=== PATIENT | female | born 1970 | race Two or more races ===

== ENCOUNTER 2023-09-17 16:01 | Emergency (ER) | payer OTHER ==
[~2023-09-17] VITALS: Ht 157.5 cm; Wt 62.1 kg
[2023-09-17] MEDS ORDERED: ACETAMINOPHEN 500 MG GEL..CAP PO ONE (18:45)
[2023-09-17] MEDS ORDERED: CEFTRIAXONE SODIUM 2,000 MG VIAL IV ONE (18:45)
[2023-09-17] MEDS ORDERED: LIDOCAINE HCL 500 MG/50 ML 1% IJ ONE (18:45)
[2023-09-17] MEDS ORDERED: TETANUS & DIPHTHERIA TOX,ADULT 0.5 ML VIAL IM ONE (18:45)
[2023-09-18] MEDS ORDERED: TRAMADOL HCL 50 MG TABLET PO ONE (00:45)
== END 2023-09-18 01:29 | disposition home or self-care (01) ==
LOC: ER 16:01
DX: S81.012A Laceration without foreign body, left knee, initial encounter (principal); W19.XXXA Unspecified fall, initial encounter; Y93.89 Activity, other specified; Y92.89 Other specified places as the place of occurrence of the external cause; Y99.9 Unspecified external cause status